=== PATIENT | male | born 2000 | race Hispanic/Latino ===

== ENCOUNTER 2024-01-18 17:27 | Emergency (ER) | payer SELFPAY ==
[~2024-01-18] VITALS: Ht 170.2 cm; Wt 113.4 kg
[2024-01-18 17:51] VITALS: PULSE 93; RESP 18; TEMP 97.7; O2SAT 99
== END 2024-01-18 18:53 | disposition home or self-care (01) ==
LOC: ER 17:56
DX: R06.02 Shortness of breath (principal); R05.9 Cough, unspecified; F17.210 Nicotine dependence, cigarettes, uncomplicated
CPT/HCPCS: 71046; 93005; 99282